=== PATIENT | male | born 1950 | race Caucasian/White ===

== ENCOUNTER 2022-07-08 07:29 | Emergency (ER) | payer MEDICARE ==
[~2022-07-08] VITALS: Ht 193 cm; Wt 83.9 kg
[2022-07-08 08:16] LABS: BASOPHILS ABSOLUTE AUTO 0.13 K/mm3 (0.00-0.23); BASOPHILS PERCENT AUTO 1 % (0-2); EOSINOPHILS PERCENT AUTO 0 % (0-6); Hematocrit 43.6 % (37.0-53.0); Hemoglobin 16.1 g/dL (13.5-17.5); IMMATURE GRAN ABSOLUTE AUTO 0.11 K/mm3 (0.00-0.10); IMMATURE GRAN PERCENT AUTO 1 % (0-1); LYMPHOCYTES ABSOLUTE AUTO 0.87 K/mm3 (0.84-5.20); LYMPHOCYTES PERCENT AUTO 6 % (21-46); MONOCYTES ABSOLUTE AUTO 0.45 K/mm3 (0.16-1.47); MONOCYTES PERCENT AUTO 3 % (4-13); Mean Corpuscular HGB 31.2 pg (26.0-34.0); Mean Corpuscular HGB Conc 36.9 g/dL (31.5-36.5); Mean Corpuscular Volume 85 fL (80-100); Mean Platelet Volume 10.1 fL (9.1-12.4); NEUTROPHILS ABSOLUTE AUTO 12.81 K/mm3 (1.96-9.15); NEUTROPHILS PERCENT AUTO 89 % (41-73); Platelet Count 256 K/mm3 (150-400); RDW Coefficient Variation 12.1 % (11.7-14.2); RDW Standard Deviation 37.3 fL (35.1-46.3); Red Blood Cell Count 5.16 M/mm3 (4.30-5.90); White Blood Cell Count 14.37 K/mm3 (4.00-11.30)
[2022-07-08 08:30] LABS: Albumin, Blood 4.2 g/dL (3.4-5.0); Albumin/Globulin Ratio 1.2 (0.8-1.8); Bilirubin, Total 2.5 mg/dL (0.1-1.0); Bun/Creatinine Ratio 9.8 (12.0-20.0); Calcium, Blood 9.5 mg/dL (8.5-10.1); Creatinine, Blood 1.02 mg/dL (0.60-1.20); Globulin, Blood 3.4 g/dL (2.2-4.0); Potassium, Blood 3.2 mmol/L (3.5-5.5); Total Protein, Blood 7.6 g/dL (6.4-8.2)
[2022-07-08] MEDS ORDERED: PROM25 PO (10:50)
== END 2022-07-08 11:10 | disposition home or self-care (01) ==
LOC: ER 07:29
PROVIDERS: Emergency Medicine
DX: R11.2 Nausea with vomiting, unspecified (principal); E11.40 Type 2 diabetes mellitus with diabetic neuropathy, unspecified
CPT/HCPCS: 36415; 80053; 83690; 85025; 93005; 93010; J2405; J2550; J7030

== ENCOUNTER 2024-12-17 10:56 | Inpatient (IN) | payer MEDICARE ==
[~2024-12-17] VITALS: Ht 193 cm; Wt 87.8 kg
[2024-12-17] VITALS (23 sets, daily range): BP systolic 115–171; BP diastolic 74–104
[~2024-12-17 10:56] MED LIST: PROM25 PO
[2024-12-17] MEDS ORDERED: NS 0 ML IV ONE (11:07)
[2024-12-17] MEDS ORDERED: Ondansetron HCl 2 MG / ML 2ML Vial ONE (11:07)
[2024-12-17] MEDS ORDERED: Ondansetron HCl 2 MG / ML 2ML Vial IV PRN ×3 (11:10→23:15)
[2024-12-17] MEDS ORDERED: Lactated Ringer's 1,000 ML IV ONE ×2 (11:13→11:20)
[2024-12-17] MEDS ORDERED: Lactated Ringer's 2,000 ML IV ONE (11:15)
[2024-12-17 11:16] LABS: BASOPHILS ABSOLUTE AUTO 0.11 K/mm3 (0.00-0.23); BASOPHILS PERCENT AUTO 0 % (0-2); EOSINOPHILS ABSOLUTE AUTO 0.01 K/mm3 (0.00-0.68); EOSINOPHILS PERCENT AUTO 0 % (0-6); Hemoglobin 19.2 g/dL (13.5-17.5); IMMATURE GRAN ABSOLUTE AUTO 0.24 K/mm3 (0.00-0.10); IMMATURE GRAN PERCENT AUTO 1 % (0-1); LYMPHOCYTES ABSOLUTE AUTO 1.16 K/mm3 (0.84-5.20); LYMPHOCYTES PERCENT AUTO 4 % (21-46); MONOCYTES ABSOLUTE AUTO 1.99 K/mm3 (0.16-1.47); MONOCYTES PERCENT AUTO 7 % (4-13); Mean Corpuscular HGB 28.8 pg (26.0-34.0); Mean Corpuscular HGB Conc 34.7 g/dL (31.5-36.5); Mean Corpuscular Volume 83 fL (80-100); Mean Platelet Volume 11.6 fL (9.1-12.4); NEUTROPHILS ABSOLUTE AUTO 26.95 K/mm3 (1.96-9.15); NEUTROPHILS PERCENT AUTO 89 % (41-73); Platelet Count 425 K/mm3 (150-400); RDW Coefficient Variation 13.5 % (11.7-14.2); RDW Standard Deviation 38.5 fL (35.1-46.3); Red Blood Cell Count 6.67 M/mm3 (4.30-5.90); White Blood Cell Count 30.46 K/mm3 (4.00-11.30)
[2024-12-17] MEDS ORDERED: Famotidine 10 MG/ML 2ML Vial IV ONE (11:20)
[2024-12-17] MEDS ORDERED: Pantoprazole Sodium 40 MG Injection IV ONE (11:20)
[2024-12-17] MEDS ORDERED: MethylPREDNISolone Sod Succ 125 MG Vial IV ONE (11:20)
[2024-12-17 11:21] LABS: Calcium, Ionized (POC) 1.13 mmol/L (1.10-1.46); Chloride (POC) 98 mmol/L (98-108); Creatinine (POC) 2.5 mg/dL (0.8-1.3); Glucose (ISTAT POC) >700 mg/dL (70-99); Hemoglobin (POC) 19.7 g/dL (13.5-17.5); Potassium (POC) 3.3 mmol/L (3.5-5.5); Sodium (POC) 141 mmol/L (135-148); Total CO2 (POC) 18 mmol/L (21-32)
[2024-12-17 11:21] LABS: Hematocrit 55.4 % (37.0-53.0)
[2024-12-17 11:22] LABS: Base Excess Venous -8.6 mmol/L; Bicarbonate Venous 17.5 mmol/L (24.0-30.0); PCO2 Venous 36.2 mmHg (38-42)
[2024-12-17] MEDS ORDERED: DiphenhydrAMINE HCl 50 MG/ML 1ML Vial IV ONE (11:30)
[2024-12-17] MEDS ORDERED: Piperacillin/Tazobactam Sod 4.5 GM in NS 100 ML IV ONE (11:30)
[2024-12-17] MEDS ORDERED: Insulin Human Regular 100 UNIT in NS 100 ML IV SCH (11:30)
[2024-12-17 11:56] LABS: Alanine Aminotransfer (ALT/SGP 27 U/L (12-78); Albumin, Blood 4.7 g/dL (3.4-5.0); Albumin/Globulin Ratio 1.1 (0.8-1.8); Alk Phos 85 U/L (50-136); Anion Gap 31 mmol/L (3-11); Aspartate Aminotrans (AST/SGOT 34 U/L (12-37); Bilirubin, Total 2.2 mg/dL (0.1-1.0); Blood Urea Nitrogen 62 mg/dL (8-24); Bun/Creatinine Ratio 26.2 (12.0-20.0); CO2, Blood 17 mmol/L (21-32); Calcium, Blood 10.8 mg/dL (8.5-10.1); Chloride, Blood 91 mmol/L (98-108); Creatinine, Blood 2.37 mg/dL (0.60-1.20); Globulin, Blood 4.1 g/dL (2.2-4.0); Glomerular Filtration Rate 28 (60-); Glucose, Blood 984 mg/dL (70-99); Potassium, Blood 3.3 mmol/L (3.5-5.5); Sodium, Blood 136 mmol/L (136-145); Total Protein, Blood 8.8 g/dL (6.4-8.2)
[2024-12-17] MEDS ORDERED: Potassium Chloride 40 MEQ in NS 250 ML IV SCH (12:05)
[2024-12-17] MEDS ORDERED: FLU VACC TS2024-25(6MOS UP)/PF 45 MCG/0.5 ML SYRINGE IM PRN (12:25)
[2024-12-17] MEDS ORDERED: Lactated Ringer's 1,000 ML IV SCH ×2 (12:25→15:15)
[2024-12-17 12:26] LABS: Beta-hydroxybutyrate 93.2 mg/dL (0.2-2.8)
[2024-12-17 12:39] LABS: International Normalized Ratio 1.07; Prothrombin Time Results 11.4 Sec (9.7-11.5)
[2024-12-17 13:22] LABS: Source, Urine Clean Catch
[2024-12-17 13:22] LABS: Glucose, Blood 1020 mg/dL (70-99)
[2024-12-17 13:29] LABS: Appearance, Urine Clear (Clear); Bilirubin, Urine Neg (Neg); Blood, Urine 2+ (Neg); Color, Urine Yellow (P-Yellow); Glucose Qualitative, Urine 4+ (Neg); Ketones, Urine 3+ (Neg); Leukocyte Esterase, Urine Neg (Neg); Nitrite, Urine Neg (Neg); Protein, Urine 2+ (Neg); Specific Gravity, Urine 1.015 (1.003-1.022); Urobilinogen, Urine NORM (Normal)
[2024-12-17 13:43] LABS: Glucose, Blood 840 mg/dL (70-99)
[2024-12-17 13:45] LABS: Bacteria Not Seen /hpf; Hyaline Casts 0-2 /lpf (0-2); Red Blood Cells, Urine 0-2 /hpf (0-2); Squamous Epithelial Cells Not Seen /hpf (Few); White Blood Cells, Urine 0-2 /hpf (0-5)
[2024-12-17 13:46] LABS: U Amphetamine Screen Not Detected; U Barbituate Screen Not Detected; U Benzodiazapine Screen Not Detected; U Buprenorphine Screen Not Detected; U Cannabinoids Screen Not Detected; U Cocaine Screen Not Detected; U Methadone Screen Not Detected; U Methamphetamine Screen Not Detected; U Opiates Screen Not Detected; U Oxycodone Screen Not Detected; U Phencyclidine Screen Not Detected
[2024-12-17 14:44] LABS: Glucose, Blood 769 mg/dL (70-99)
[2024-12-17 15:50] LABS: Adenovirus Not Detected (NOT DETECT); Bordetella pertussis Not Detected (NOT DETECT); Chlamydophila pneumoniae Not Detected (NOT DETECT); Coronavirus 229E Not Detected (NOT DETECT); Coronavirus HKU1 Not Detected (NOT DETECT); Coronavirus NL63 Not Detected (NOT DETECT); Coronavirus OC43 Not Detected (NOT DETECT); Human Metapneumovirus Not Detected (NOT DETECT); Human Rhinovirus/Enterovirus Not Detected (NOT DETECT); Influenza A/2009-H1 Not Detected (NOT DETECT); Influenza A/H1 Not Detected (NOT DETECT); Influenza A/H3 Not Detected (NOT DETECT); Influenza B Not Detected (NOT DETECT); Mycoplasma pneumoniae Not Detected (NOT DETECT); Parainfluenza Virus 1 Not Detected (NOT DETECT); Parainfluenza Virus 2 Not Detected (NOT DETECT); Parainfluenza Virus 3 Not Detected (NOT DETECT); Parainfluenza Virus 4 Not Detected (NOT DETECT); Respiratory Syncytial Virus Not Detected (NOT DETECT); SARS-Cov-2 (COVID-19), BioFire Not Detected (NOT DETECT)
[2024-12-17] MEDS ORDERED: Potassium Chloride 20 MEQ/15 ML UDC PO ONE (16:00)
--- NOTE | 2024-12-17 16:07 | NUR ---
THIS RN ASSUMED CARE OF PT AT 1500. PT IS ALERT AND ORIENTED X4, CALLS APPROPRIATELY. PT HEART RATE IN THE 100s, BLOOD PRESSURE STABLE AT 134/84, PT DENIES CHEST PAIN UPON ASSESSMENT. PT WAS PUT ON A NON-REBREATHER UPON ADMISSION TO THE ICU, WAS AT BEDSIDE AND PUT PT ON ROOM AIR, PT SATTING >92%, PT DENIES SHORTNESS OF BREATH UPON ASSESSMENT. PT BLOOD SUGAR >700, IS AWARE. INSULIN TURNED OFF PER DUE TO LOW POTASSIUM. PT ABLE TO VOID PER KAR, STILL HAVING BROWN LOOKING SPUTUM, AWARE. NEW ORDERS HAVE BEEN PLACED PER . NO OTHER INTERVENTIONS AT THIS TIME. PLAN OF CARE CONTINUED.
[2024-12-17] MEDS ORDERED: Potassium Chloride 40 MEQ in NS 250 ML IV ONE ×3 (16:50→22:50)
[2024-12-17 17:09] LABS: Bun/Creatinine Ratio 28.5 (12.0-20.0); Calcium, Blood 9.8 mg/dL (8.5-10.1); Potassium, Blood 3.5 mmol/L (3.5-5.5)
[2024-12-17 17:13] LABS: Base Excess Venous -2.5 mmol/L; Bicarbonate Venous 22.1 mmol/L (24.0-30.0); PCO2 Venous 37.5 mmHg (38-42); pH Blood Venous 7.39 (7.34-7.37)
--- NOTE | 2024-12-17 17:55 | NUR ---
PT SUMMARY REDRAW OF BMP AND VBG WAS COMPLETE AT 1630, WAS NOTIFIED GLUCOSE WAS 636, POTASSIUM 3.5, PROVIDER SAID OKAY TO RESTART INSULIN GTT, STARTED PER PROTOCOL. WANTED ANOTHER BMP AT 2130, THEN ANOTHER 40MEQ OF POTASSIUM AFTER THE CURRENT BAG IS COMPLETE, ORDERS ARE IN. PT STATES THEY ARE STARTING TO FEEL BETTER. NO OTHER INTERVENTIONS AT THIS TIME. PLAN OF CARE CONTINUED.
[2024-12-17] MEDS ORDERED: Piperacillin/Tazobactam Sod 3.375 GM in NS 100 ML IV SCH (18:00)
[2024-12-17] MEDS ORDERED: Metoprolol Tartrate 1 MG/ML 5 ML VIAL IV ONE (19:01)
[2024-12-17] MEDS ORDERED: Adenosine 3 MG/ML 2 ML Vial IV ONE (19:01)
[2024-12-17 19:11] LABS: Glucose, Blood 637 mg/dL (70-99)
[2024-12-17 22:17] LABS: Bun/Creatinine Ratio 29.4 (12.0-20.0); Calcium, Blood 10.2 mg/dL (8.5-10.1); Creatinine, Blood 2.04 mg/dL (0.60-1.20)
[2024-12-17] MEDS ORDERED: Dextrose 5% 1,000 ML IV SCH (22:35)
[2024-12-18] VITALS (78 sets, daily range): BP systolic 77–181; BP diastolic 35–153
--- NOTE | 2024-12-18 01:16 | NUR ---
UPDATE AROUND 2200 PT BEGAN TO C/O SOB, APPEARED TO HAVE AN INCREASED WOB, AND L/S WERE MORE COARSE T/O COMPARED TO START OF SHIFT. ABLE TO CLEAR OWN AIRWAY W/ MODERATE AMOUNTS OF THICK GREEN SECRETIONS. PT WAS ON ROOM AIR UNTIL THIS POINT, PLACED 2L NC ON PT AND CALL PLACED TO DR. TERRELL. ORDERS GIVEN FOR FLUID RATE ADJUSTMENT.
[2024-12-18 03:46] LABS: Hemoglobin 17.2 g/dL (13.5-17.5); Mean Corpuscular HGB 28.6 pg (26.0-34.0); Mean Corpuscular HGB Conc 35.1 g/dL (31.5-36.5); Mean Corpuscular Volume 81 fL (80-100); Mean Platelet Volume 10.3 fL (9.1-12.4); Platelet Count 292 K/mm3 (150-400); RDW Standard Deviation 38.4 fL (35.1-46.3); Red Blood Cell Count 6.02 M/mm3 (4.30-5.90)
[2024-12-18 03:56] LABS: Albumin, Blood 3.5 g/dL (3.4-5.0); Albumin/Globulin Ratio 0.9 (0.8-1.8); Bilirubin, Total 1.2 mg/dL (0.1-1.0); Bun/Creatinine Ratio 26.7 (12.0-20.0); Calcium, Blood 9.8 mg/dL (8.5-10.1); Creatinine, Blood 1.91 mg/dL (0.60-1.20); Globulin, Blood 3.8 g/dL (2.2-4.0); Potassium, Blood 3.6 mmol/L (3.5-5.5); Total Protein, Blood 7.3 g/dL (6.4-8.2)
[2024-12-18 03:58] LABS: BAND PERCENT MAN 19 % (0-8); BASOPHILS PERCENT MAN 0 % (0-2); EOSINOPHILS PERCENT MAN 0 % (0-6); LYMPHOCYTES ABSOLUTE MAN 1.72 K/mm3 (0.84-5.20); LYMPHOCYTES PERCENT MAN 8 % (21-46); MONOCYTES ABSOLUTE MAN 0.43 K/mm3 (0.16-1.47); MONOCYTES PERCENT MAN 2 % (4-13); NEUTROPHILS ABSOLUTE MAN 19.44 K/mm3 (1.96-9.15); SEG NEUTROPHILS PERCENT MAN 71 % (41-73); TOTAL CELLS COUNTED 100
--- NOTE | 2024-12-18 06:23 | NUR ---
SHIFT SUMMARY PT A/OX4, DIFFICULT TO UNDERSTAND R/T SWOLLEN BOTTOM LIP FROM FALL AT HOME. DENIES PAIN. PT HAS BEEN N/V MOST OF THIS SHIFT. PRN ZOFRAN GIVEN WITH SOME RELIEF. NPO R/T ASPIRATION RISK. INSULIN GTT AND D5W INFUSING. PT ON 3L NC, SATS > 94%, SEE OTHER NOTE FOR MORE RESP INFO. HR 80-100'S, MAPS > 65. PUREWICK IN PLACE. CALL LIGHT IN REACH.
[2024-12-18] MEDS ORDERED: Enoxaparin 40 MG/0.4 ML SYR SC SCH (09:00)
[2024-12-18] MEDS ORDERED: Promethazine HCl 25 MG Tab PO PRN (09:45)
[2024-12-18] MEDS ORDERED: Piperacillin/Tazobactam Sod 3.375 GM in NS 100 ML IV SCH (10:00)
[2024-12-18 10:36] LABS: Bun/Creatinine Ratio 24.4 (12.0-20.0); Calcium, Blood 10.2 mg/dL (8.5-10.1); Creatinine, Blood 2.01 mg/dL (0.60-1.20); Potassium, Blood 4.1 mmol/L (3.5-5.5)
[2024-12-18] MEDS ORDERED: Insulin Glargine-Yfgn 100 Unit/mL 3 ML SYR SC SCH (11:00)
[2024-12-18] MEDS ORDERED: Insulin Regular 100 UNIT/ML 10ML Vial SC SCH (12:00)
[2024-12-18] MEDS ORDERED: Diltiazem HCl 5 MG / ML 5ML Vial ONE (13:53)
[2024-12-18] MEDS ORDERED: Diltiazem HCl 5 MG / ML 5ML Vial IV ONE (13:55)
[2024-12-18] MEDS ORDERED: Heparin Sodium,Porcine/0.5 NS 500 ML IV SCH (14:30)
[2024-12-18] MEDS ORDERED: Metoprolol Tartrate 1 MG/ML 5 ML VIAL IV PRN (15:55)
[2024-12-18] MEDS ORDERED: Metoprolol Tartrate 50 MG Tab PO SCH (16:00)
[2024-12-18 16:31] LABS: Bun/Creatinine Ratio 23.8 (12.0-20.0); Calcium, Blood 9.7 mg/dL (8.5-10.1); Creatinine, Blood 2.02 mg/dL (0.60-1.20); Potassium, Blood 4.2 mmol/L (3.5-5.5)
[2024-12-18] MEDS ORDERED: FentaNYL Citrate 50 MCG/ML 2 ML Injection IV PRN (17:25)
[2024-12-18] MEDS ORDERED: dexmedeTOMIDine 100 ML IV SCH (17:25)
--- NOTE | 2024-12-18 18:39 | NUR ---
Event. At approximately 1345 pt noted to have rhythm change to SVT, supercharger repair supervisor, Dr. Mendoza and other staff called to bedside. Vagal maneuvers attempted without success, 6mg Adenosine given at 1353 with no effect, 20mg Cardizem given at 1358, 5mg lopressor given at 1403. HR slowly dropped into 130-140s. Order obtained for cardizem infusion. Infusion unsuccessful at reducing HR further, Dr. Mendoza contacted again, orders obtained for PRN and PO metoprolol. Given with good effect on HR. Pt converted to sinus rhythm after additional dose of PRN lopressor this evening.
--- NOTE | 2024-12-18 18:45 | NUR ---
Summary. See event note for HR. Otherwise pt rested in bed all shift, pt confused, restless, pulling at lines/cords and attempting to get out of bed. Pt redirected and bed alarm put in place all shift. Order for precedex obtained if pt continues to attempt to get out of bed unsafely. No other acute events, see chart for details.
[2024-12-18 21:16] LABS: Bun/Creatinine Ratio 25.8 (12.0-20.0); Calcium, Blood 9.6 mg/dL (8.5-10.1); Creatinine, Blood 1.98 mg/dL (0.60-1.20)
[2024-12-18] MEDS ORDERED: Dose Adjust by Pharmacy XX STA (22:37)
[2024-12-18] MEDS ORDERED: Heparin Sodium 5000 Units/ML 1ML MDV IV ONE (22:40)
[2024-12-19] VITALS (50 sets, daily range): BP systolic 104–175; BP diastolic 59–151
[2024-12-19] MEDS ORDERED: Dextrose 5% 1,000 ML IV SCH (02:00)
[2024-12-19 04:38] LABS: BASOPHILS ABSOLUTE AUTO 0.03 K/mm3 (0.00-0.23); BASOPHILS PERCENT AUTO 0 % (0-2); EOSINOPHILS PERCENT AUTO 0 % (0-6); Hematocrit 44.5 % (37.0-53.0); Hemoglobin 14.9 g/dL (13.5-17.5); IMMATURE GRAN ABSOLUTE AUTO 0.07 K/mm3 (0.00-0.10); IMMATURE GRAN PERCENT AUTO 1 % (0-1); LYMPHOCYTES ABSOLUTE AUTO 1.67 K/mm3 (0.84-5.20); LYMPHOCYTES PERCENT AUTO 12 % (21-46); MONOCYTES ABSOLUTE AUTO 0.97 K/mm3 (0.16-1.47); MONOCYTES PERCENT AUTO 7 % (4-13); Mean Corpuscular HGB 28.5 pg (26.0-34.0); Mean Corpuscular HGB Conc 33.5 g/dL (31.5-36.5); Mean Corpuscular Volume 85 fL (80-100); Mean Platelet Volume 11.3 fL (9.1-12.4); NEUTROPHILS ABSOLUTE AUTO 11.71 K/mm3 (1.96-9.15); NEUTROPHILS PERCENT AUTO 81 % (41-73); Platelet Count 210 K/mm3 (150-400); RDW Coefficient Variation 13.2 % (11.7-14.2); Red Blood Cell Count 5.22 M/mm3 (4.30-5.90); White Blood Cell Count 14.45 K/mm3 (4.00-11.30)
[2024-12-19 04:57] LABS: Albumin/Globulin Ratio 0.9 (0.8-1.8); Bilirubin, Total 0.9 mg/dL (0.1-1.0); Bun/Creatinine Ratio 27.3 (12.0-20.0); Calcium, Blood 9.1 mg/dL (8.5-10.1); Creatinine, Blood 2.05 mg/dL (0.60-1.20); Globulin, Blood 3.5 g/dL (2.2-4.0); Potassium, Blood 4.2 mmol/L (3.5-5.5); Total Protein, Blood 6.5 g/dL (6.4-8.2)
[2024-12-19] MEDS ORDERED: Clarify Drug Order XX ONE (05:55)
--- NOTE | 2024-12-19 06:10 | NUR ---
SHIFT SUMMARY PT A/OX2, UNABLE TO ANSWER PLACE AND DATE QUESTIONS APPROPRIATLY. HE WAS AGITATED AND ATTEMPTING TO GET OOB, ALSO PULLING ON LINES AND TUBES. SITTER WAS ASSIGNED FOR ROUGHLY AN HOUR AND PRECEDEX WAS STARTED. PT BECAME RELAXED AND WAS ABLE TO SLEEP MOST OF THE NIGHT AFTER PRECEDEX STARTED. SITTER WAS D/C'd. CARDIAC MONITORING IN [facility], PT MAINTAINED HR IN 70-80'S, BP STABLE. ON 2L NC R/T DESATTING WHILE ASLEEP. CONDOM CATH PLACED, NO UOP THIS SHIFT. BLADDER SCANNED AT 0100 WITH 350 IN BLADDER. PG DRESSING CHANGED THIS SHIFT.
[2024-12-19] MEDS ORDERED: Enoxaparin 40 MG/0.4 ML SYR SC SCH (09:00)
[2024-12-19] MEDS ORDERED: Insulin Glargine-Yfgn 100 Unit/mL 3 ML SYR SC ONE (10:00)
[2024-12-19] MEDS ORDERED: HydrALAZINE HCl 10 MG Tab PO PRN (11:40)
[2024-12-19] MEDS ORDERED: Bisacodyl 10 MG Supp PR PRN (11:45)
[2024-12-19] MEDS ORDERED: Magnesium Hydroxide Conc 10 ML UDC PT PRN (11:45)
[2024-12-19] MEDS ORDERED: Docusate Sodium Liquid 100 MG UDC PT PRN (11:45)
[2024-12-19] MEDS ORDERED: Heparin Sodium 5000 Units/ML 1ML MDV SC SCH (12:00)
[2024-12-19] MEDS ORDERED: Protein Supplement 30 ML UD PT SCH (14:00)
[2024-12-19 16:00] LABS: Calcium, Blood 9.6 mg/dL (8.5-10.1); Creatinine, Blood 1.86 mg/dL (0.60-1.20); Potassium, Blood 3.6 mmol/L (3.5-5.5)
--- NOTE | 2024-12-19 18:24 | NUR ---
Summary. Pt more alert this shift. Status changed, precedex dc'd. Up to chair much of shift, worked with PT and OT today. Pt failed speech eval, dobhoff placed this afternoon and TF started at goal rate. One short episode of SVT, otherwise VS wnl all shift. See chart for further details.
--- NOTE | 2024-12-19 19:58 | NUR ---
ASSESSMENT/ASSUMED CARE PT AWAKE, MOVING SELF IN BED. DENIES PAIN OR DISCOMFORT. BED ALARM ON. A&O X4. SPEECH SLOW BUT CLEAR AND ABLE TO MAKE NEEDS KNOWN. LUNGS COARSE AND DECREASED. ON ROOMAIR. SPO2 95%. RESP EVEN AND NONLABORED. PRODUCTIVE COUGH WITH THICK PLUMMER/YELLOW SPUTUM. HEART RATE REGULAR IN THE 70-80'S. BP STABLE. DENEIS CHEST PAIN OR PRESSURE. NO EDEMA. BT+ ABD SOFT AND NONTENDER. DENIES N/V. DOBHOFF TO LEFT NARE AT 67 CM WITH TUBE FEED VITAL HP AT GOAL RATE OF 25 ML/HR AND WATER 30 ML Q4HR. POWER GLIDE TO RIGHT UPPER ARM SALINE LOCKED. DRSG INTACT. ABLE TO DRAW BLOOD AND FLUSH WITHOUT DIFFICULTY. PIV TO RIGHT FOREARM, RIGHT HAND AND LEFT FOREARM. ALL SALINE LOCKED. ABLE TO FLUSH WITHOUT DIFFICULTY. PT WITH POOR ORAL CARE. SCAB TO LEFT LOWER LIP DRY. ASSISTED WITH ORAL CARE AND MOUTH MOISTURIZER APPLIED. WILL CONT TO MONITOR
--- NOTE | 2024-12-19 22:05 | NUR ---
JUSTO OKAY TO USE PER DR MARADIAGA
--- NOTE | 2024-12-19 23:00 | NUR ---
SPO2 DOWN TO 86% ON ROOMAIR. PLACED ON 3 LITERS O2 VIA NC AND SPO2 UP TO 96%
[2024-12-20] VITALS: BP 165/82
--- NOTE | 2024-12-20 02:59 | NUR ---
PAIN PT VERY RESTLESS, PULLING ON LINES. TRYING TO CLIMB OUT OF BED. SAYING,"YOU ARE BULL SHITTING ME. YOUR TRYING TO MAKE ME PEE WHEN I DON'T HAVE TO." TRYING TO REORIENT PT. PT STATES,"I KNOW I'M IN THE HOSPITAL. DON'T TELL ME WHAT I ALREADY KNOW". PT MED WITH FENTANYL FOR GENERAL PAIN. PT STATES,"I JUST WANT TO GET SOME SLEEP".
[2024-12-20 03:14] VITALS: BP 175/103
[2024-12-20 03:31] LABS: BASOPHILS ABSOLUTE AUTO 0.02 K/mm3 (0.00-0.23); BASOPHILS PERCENT AUTO 0 % (0-2); EOSINOPHILS PERCENT AUTO 0 % (0-6); Hematocrit 49.2 % (37.0-53.0); Hemoglobin 16.3 g/dL (13.5-17.5); IMMATURE GRAN ABSOLUTE AUTO 0.07 K/mm3 (0.00-0.10); IMMATURE GRAN PERCENT AUTO 1 % (0-1); LYMPHOCYTES ABSOLUTE AUTO 1.63 K/mm3 (0.84-5.20); LYMPHOCYTES PERCENT AUTO 11 % (21-46); MONOCYTES ABSOLUTE AUTO 0.79 K/mm3 (0.16-1.47); MONOCYTES PERCENT AUTO 5 % (4-13); Mean Corpuscular HGB 28.6 pg (26.0-34.0); Mean Corpuscular HGB Conc 33.1 g/dL (31.5-36.5); Mean Corpuscular Volume 86 fL (80-100); NEUTROPHILS ABSOLUTE AUTO 12.51 K/mm3 (1.96-9.15); NEUTROPHILS PERCENT AUTO 83 % (41-73); Platelet Count 246 K/mm3 (150-400); RDW Coefficient Variation 13.1 % (11.7-14.2); RDW Standard Deviation 40.3 fL (35.1-46.3); White Blood Cell Count 15.02 K/mm3 (4.00-11.30)
[2024-12-20 03:55] LABS: Bun/Creatinine Ratio 32.1 (12.0-20.0); Calcium, Blood 10.1 mg/dL (8.5-10.1); Creatinine, Blood 1.62 mg/dL (0.60-1.20); Magnesium, Blood 2.6 mg/dL (1.6-2.4); Phosphorus, Blood 1.7 mg/dL (2.5-4.9); Potassium, Blood 3.8 mmol/L (3.5-5.5)
[2024-12-20 04:00] VITALS: BP 167/86
--- NOTE | 2024-12-20 04:14 | NUR ---
CALL TO MD CALL TO DR MARADIAGA REGARDING AM LABS. SEE NEW ORDERS
[2024-12-20] MEDS ORDERED: Insulin Regular 100 UNIT/ML 10ML Vial SC SCH (04:15)
--- NOTE | 2024-12-20 04:54 | NUR ---
SHIFT SUMMARY PT RESTING QUIETLY AT THIS TIME. STARTED ON 3 LITERS O2 VIA NC WHILE SLEEPING DUE TO SPO2 DOWN TO 86%. SPO2 UP TO MID 90'S WITH O2. PRODUCTIVE COUGH WITH PLUMMER/YELLOW THICK SPUTUM. PT HAD SOME CONFUSION DURING THE NIGHT, BUT NOW IS A&O. COOP WITH CARE. DOBHOFF REPLACED DURING THE NIGHT DUE TO PT PULLING IT OUT. PT MED WITH HYDRALAZINE VIA DOBHOFF DUE TO HTN. POST VOID BLADDER SCAN DONE. THAN PT STRAIGHT CATH FOR TOTAL 700 ML. ATTENDS C&I. AM LABS CALLED TO DR MARADIAGA. AWAITING K PHOS. CONT TO MONITOR
[2024-12-20] MEDS ORDERED: Potassium Phosphate Dibasic 30 MM in Dextrose 5% 500 ML IV ONE (05:30)
[2024-12-20] MEDS ORDERED: Thiamine HCl 100 MG Tab PT SCH (09:00)
[2024-12-20] MEDS ORDERED: Insulin Glargine-Yfgn 100 Unit/mL 3 ML SYR SC SCH ×2 (09:00)
[2024-12-20] MEDS ORDERED: Multivitamins-Minerals Liquid 15 ML Oral Syringe PT SCH (09:00)
[2024-12-20 11:43] VITALS: BP 125/80
--- NOTE | 2024-12-20 13:09 | NUR ---
Tube feeding adjusted and increased to 40 cc/hour, water flushes are at 250 cc every 6 hours per am orders. Pt was helped back to bed at his request. he had been up in chair after working with KYRA Gordon this morning.
[2024-12-20 16:13] VITALS: BP 175/88
--- NOTE | 2024-12-20 17:30 | NUR ---
1700 Pt pulled out 2 IVs as well as his Dobhoff. He says he pulled them out because he "doesn't need them". Conversation with patient asking if he is wanting to go on hospice/comfort care and discontinue treatment vs. continuing treatment and he clearly said that he does not want hospice, but that he wants to get better so that he can go home. Explained to patient the reason for the IVs, feeding tube and that without those at this time he would not get better, but would definitely get worse. He said that he wants to continue treatment and agreed to have the Dobhoff tube replaced and IV medications and insulin injections, etc.
--- NOTE | 2024-12-20 18:42 | NUR ---
No read yet of xray ordered for Dobhoff placement. Imaging department confirms that the pt did have the xray done and it is being read at this time.
[2024-12-20] MEDS ORDERED: Lactobacil 2-S.Thermo-Bifido 1 1 Cap PT SCH (21:00)
[2024-12-20] MEDS ORDERED: Protein Supplement 30 ML UD PT SCH (21:00)
[2024-12-20] MEDS ORDERED: Acetaminophen 325 MG TABLET PO PRN (21:15)
--- NOTE | 2024-12-20 21:41 | NUR ---
NURSING NOTE: THIS PT PULLED OUT DOBHOFF LINE AT ABOUT 2130. THIS RN ASKED PT WHY HE PULLED LINE AND HE RESPONDED, "YOU ARE TRYING TO KILL ME". PT EDUCATED ON WHY DOBHOFF WAS IN PLACE AND HE RESPONDED, "YOU AREN'T FEEDING ME ANYTHING". PT EDUCATED ON WHAT TUBE FEED WAS RUNNING AND WHY HE CANNOT HAVE ANYTHING PO AT THIS TIME. AFTER EDUCATIOM, THIS RN ASKED IF I COULD PLACE ANOTHER DOBHOFF AND TO WHICH THE PT REFUSED.
[2024-12-21 03:39] LABS: BASOPHILS ABSOLUTE AUTO 0.03 K/mm3 (0.00-0.23); BASOPHILS PERCENT AUTO 0 % (0-2); EOSINOPHILS ABSOLUTE AUTO 0.01 K/mm3 (0.00-0.68); EOSINOPHILS PERCENT AUTO 0 % (0-6); Hemoglobin 16.2 g/dL (13.5-17.5); IMMATURE GRAN ABSOLUTE AUTO 0.05 K/mm3 (0.00-0.10); IMMATURE GRAN PERCENT AUTO 0 % (0-1); LYMPHOCYTES ABSOLUTE AUTO 1.71 K/mm3 (0.84-5.20); LYMPHOCYTES PERCENT AUTO 14 % (21-46); MONOCYTES ABSOLUTE AUTO 0.72 K/mm3 (0.16-1.47); MONOCYTES PERCENT AUTO 6 % (4-13); Mean Corpuscular HGB 28.5 pg (26.0-34.0); Mean Corpuscular HGB Conc 33.1 g/dL (31.5-36.5); Mean Corpuscular Volume 86 fL (80-100); Mean Platelet Volume 10.5 fL (9.1-12.4); NEUTROPHILS ABSOLUTE AUTO 9.64 K/mm3 (1.96-9.15); NEUTROPHILS PERCENT AUTO 79 % (41-73); Platelet Count 212 K/mm3 (150-400); RDW Coefficient Variation 13.1 % (11.7-14.2); RDW Standard Deviation 40.6 fL (35.1-46.3); Red Blood Cell Count 5.69 M/mm3 (4.30-5.90); White Blood Cell Count 12.16 K/mm3 (4.00-11.30)
[2024-12-21 03:56] LABS: Bun/Creatinine Ratio 29.7 (12.0-20.0); Calcium, Blood 9.4 mg/dL (8.5-10.1); Creatinine, Blood 1.48 mg/dL (0.60-1.20); Magnesium, Blood 2.6 mg/dL (1.6-2.4); Phosphorus, Blood 2.8 mg/dL (2.5-4.9); Potassium, Blood 3.3 mmol/L (3.5-5.5)
[2024-12-21 04:14] VITALS: BP 127/72
--- NOTE | 2024-12-21 06:10 | NUR ---
SHIFT SUMMARY: THIS PT OVERALL HAD A GOOD NIGHT AND WAS ABLE TO GET SOME REST OVERNIGHT. STATED IN A PREVIOUS NOTE, THE PT PULLED OUT HIS DOBHOFF EARLY IN THE SHIFT AND REFUSED FOR ME TO PUT ANOTHER ONE IN. HE WAS VERY DISTRUSTFUL TOWARDS THIS RN AND OTHER NURSING STAFF, THINKING THAT WE WERE TRYING TO HURT HIM. HE WOULD QUESTION ANYTHING I WAS DOING AND WOULD SAY "WHAT DOES IT MATTER ANYWAYS". AFTER THIS EVENT, HE WAS PLEASANT FOR THE REST OF THE NIGHT AND IS CURRENTLY RESTING IN HIS ROOM AWAITING TRANSFER OUT OF THE ICU.
[2024-12-21] MEDS ORDERED: Dextrose 5% 1,000 ML IV SCH (07:35)
[2024-12-21] MEDS ORDERED: Potassium Chloride 40 MEQ in NS 250 ML IV ONE (07:50)
[2024-12-21 08:00] VITALS: BP 155/96
[2024-12-21] MEDS ORDERED: Insulin Glargine-Yfgn 100 Unit/mL 3 ML SYR SC SCH (09:00)
--- NOTE | 2024-12-21 10:14 | NUR ---
THIS RN ASSUMED CARE OF PT AT 0700. PT IS ALERT AND ORIENTED X3, CONFUSED ABOUT EXACT DATE BUT VERY REDIRECTABLE. PT HEART RATE IN THE 80s, BLOOD PRESSURE STABLE AT 155/96, PT DENIES CHEST PAIN UPON ASSESSMENT. PT ON ROOM AIR SOUNDS CRACKLE/COURSE/CLEAR, GETTING IV ANTIBIOTICS, SATTING >95%, PT DENIES SHORTNESS OF BREATH. PT HAD A DOBHOFF IN BUT PT PULLED IT OUT AND STATED THEY DO NOT WANT US TO REPLACE IT. NOTIFIED AND NEW ORDERS PLACED, PALLIATIVE IS ON THE CASE. NO OTHER INTERVENTIONS AT THIS TIME. PLAN OF CARE CONTINUED.
[2024-12-21 16:00] VITALS: BP 135/103
[2024-12-21] MEDS ORDERED: DEXTROSE 5% IV SCH (16:00)
[2024-12-21] MEDS ORDERED: TAZOBACTAM SOD IV SCH (16:00)
[2024-12-21] MEDS ORDERED: PIPERACILLIN IV SCH (16:00)
--- NOTE | 2024-12-21 17:18 | NUR ---
PT SUMMARY PT IS ALERT AND ORIENTED X4, FOLLOWS COMMANDS. NO ACUTE CHANGED THROUGHOUT THE DAY, PT IS NOW MEDICAL STATUS WITH TELE PER . IS AWARE THAT PT DOES NOT WANT A DOBHOFF, PROVIDER IS TALKING TO PT ABOUT POSSIBLE G/J TUBE PLACEMENT IF PT CONSENTS, OTHERWISE ON MONDAY SAID MIGHT HAVE TO START IV NUTRITION PER DIETARY. NO OTHER INTERVENTIONS AT THIS TIME. PLAN OF CARE CONTINUED.
[2024-12-21 20:00] VITALS: BP 152/94
[2024-12-22] VITALS: BP 123/84
[2024-12-22 03:13] LABS: BASOPHILS ABSOLUTE AUTO 0.04 K/mm3 (0.00-0.23); BASOPHILS PERCENT AUTO 0 % (0-2); EOSINOPHILS ABSOLUTE AUTO 0.09 K/mm3 (0.00-0.68); EOSINOPHILS PERCENT AUTO 1 % (0-6); Hematocrit 48.6 % (37.0-53.0); Hemoglobin 15.8 g/dL (13.5-17.5); IMMATURE GRAN ABSOLUTE AUTO 0.09 K/mm3 (0.00-0.10); IMMATURE GRAN PERCENT AUTO 1 % (0-1); LYMPHOCYTES ABSOLUTE AUTO 1.96 K/mm3 (0.84-5.20); LYMPHOCYTES PERCENT AUTO 19 % (21-46); MONOCYTES ABSOLUTE AUTO 0.88 K/mm3 (0.16-1.47); MONOCYTES PERCENT AUTO 9 % (4-13); Mean Corpuscular HGB 28.2 pg (26.0-34.0); Mean Corpuscular HGB Conc 32.5 g/dL (31.5-36.5); Mean Corpuscular Volume 87 fL (80-100); Mean Platelet Volume 10.6 fL (9.1-12.4); NEUTROPHILS PERCENT AUTO 70 % (41-73); Platelet Count 212 K/mm3 (150-400); RDW Coefficient Variation 12.9 % (11.7-14.2); RDW Standard Deviation 40.9 fL (35.1-46.3); White Blood Cell Count 10.16 K/mm3 (4.00-11.30)
[2024-12-22 03:29] LABS: Magnesium, Blood 2.5 mg/dL (1.6-2.4)
[2024-12-22 03:30] LABS: Phosphorus, Blood 2.1 mg/dL (2.5-4.9)
[2024-12-22 04:00] VITALS: BP 110/92
[2024-12-22 07:49] VITALS: BP 136/95
[2024-12-22 08:06] LABS: Bun/Creatinine Ratio 23.2 (12.0-20.0); Creatinine, Blood 1.51 mg/dL (0.60-1.20)
[2024-12-22] MEDS ORDERED: Potassium Chloride 40 MEQ in NS 250 ML IV ONE (09:00)
--- NOTE | 2024-12-22 10:04 | NUR ---
THIS RN ASSUMED CARE OF PT AT 0700. PT IS ALERT AND ORIENTED X4, FOLLOWS COMMANDS AND CALLS OUT APPROPRIATELY. PT HEART RATE IN THE 70s, BLOOD PRESSURE STABLE AT 143/86 MAP OF 104, PT DENIES ANY CHEST PAIN UPON ASSESSMENT. PT IS ON ROOM AIR SATTING >95% AND PT DENIES SHORTNESS OF BREATH UPON ASSESSMENT. PT PT POTASSIUM WAS LOW THIS AM, AND SODIUM IS STILL TRENDING UP AT 157, HAS BEEN NOTIFIED AND NEW ORDERS PLACED. BARIUM SWALLOW STUDY IS THE PLAN FOR MONDAY SPEECH THERAPY IS NOT HERE ON SUNDAYS. WILL GET A REPEAT SODIUM LEVEL AT 1500 TODAY TO CHECK IF INTERVENTIONS ARE WORKING. NO OTHER INTERVENTIONS AT THIS TIME. PLAN OF CARE CONTINUED.
[2024-12-22 15:50] LABS: Potassium, Blood 3.3 mmol/L (3.5-5.5)
[2024-12-22 16:17] VITALS: BP 136/85
[2024-12-22] MEDS ORDERED: Potassium Phosphate Dibasic 30 MM in Dextrose 5% 500 ML IV STA (16:54)
--- NOTE | 2024-12-22 17:54 | NUR ---
PT SUMMARY NO NEW ACUTE CHANGES THROUGHOUT THE DAY, BARIUM SWALLOW STUDY ON MONDAY WITH POSSIBLE IV NUTRITION PER . PT RELAXING IN BED, ABLE TO STAND AND USE URINAL WITH A X1 ASSIST. SODIUM IS TRENDING DOWN, AND POTASSIUM STILL LOW, PUT IN NEW ORDERS. NO OTHER INTERVENTIONS AT THIS TIME. PLAN OF CARE CONTINUED.
[2024-12-22 20:00] VITALS: BP 156/92
[2024-12-23] VITALS (7 sets, daily range): BP systolic 123–139; BP diastolic 71–97
[2024-12-23 03:51] LABS: Bun/Creatinine Ratio 17.1 (12.0-20.0); Creatinine, Blood 1.4 mg/dL (0.60-1.20); Potassium, Blood 3.1 mmol/L (3.5-5.5)
--- NOTE | 2024-12-23 07:28 | NUR ---
THIS RN ASSUMED CARE OF PT AT 0700. PT IS ALERT AND ORIENTED X4, FOLLOWS COMMANDS BUT HAS TROUBLE CALLING OUT FOR HELP APPROPRIATELY. PT HEART RATE IN THE 80s, BLOOD PRESSURE STABLE AT 123/97, PT DENIES ANY CHEST PAIN UPON ASSESSMENT. PT IS ON ROOM AIR SOUNDS COURSE/CLEAR, SATTING >95%, PT DENIES ANY SHORTNESS OF BREATH. THIS RN GOT REPORT THAT PT HAD A FALL LAST NIGHT, THE FALL PRECAUTIONS HAVE BEEN PUT INTO PLACE, NON-SLIP SOCKS ARE ON AND BED ALARMS HAVE BEEN SET. PALLIATIVE SHOULD BE BY TODAY TO TALK ABOUT GOALS OF CARE AND POSSIBLY STARTING IV NUTRITION. NO OTHER INTERVENTIONS AT THIS TIME. PLAN OF CARE CONTINUED.
[2024-12-23] MEDS ORDERED: Dextrose 5% 1,000 ML IV SCH ×2 (07:35→14:15)
[2024-12-23] MEDS ORDERED: Potassium Chl 20MEQ/Water100ML 100 ML IV SCH (08:00)
[2024-12-23 12:13] LABS: C DIFFICILE DNA NEGATIVE (Negative)
--- NOTE | 2024-12-23 14:14 | NUR ---
PT IS BEING TRANSFERED TO [facility], PT BROTHER WILBUR HAS BEEN NOTIFIED, NO OTHER INTERVENTIONS AT THIS TIME. PLAN OF CARE CONTINUED, REPORT HAS BEEN CALLED.
--- NOTE | 2024-12-23 14:20 | NUR ---
PATIENT TRANSFERED FROM ICU 1 TO ROOM 364, REPORT RECEIVED FROM LEONOR GARDUNO. PATIENT ORIENTED TO ROOM AND USE OF CALL LIGHT. ABLE TO TRANSFER WITH 1 ASSIST TO BED. RECAL TUBE IN PLACE, C-DIFF NEGATIVE TODAY. CONDOM CATH IN PLACE DRAINING ALFREDA CLEAR URINE. LOWER LIP SWOLLEN, RED AND SCABBED OVER FROM FALL AT HOME PRIOR TO ADMIT. PATIENT IS A/O X4, PLEASANT AND COOPERATIVE WITH CARE. FALL PRECAUTIONS IN PLACE, BED ALARM SET.
--- NOTE | 2024-12-23 15:15 | NUR ---
SPOKE WITH PT'S BROTHER WILBUR TODAY AFTER SEEING THE PATIENT. WILBUR IS WILLING TO TAKE THE PATIENT INTO AN ADJOINING [facility] VS THE TRAILER THE PT WAS LIVING IN. THE PATIENT HAS STATED HE IS BE INTERESTED IN SPEECH, PHYSICAL AND OCCUPATIONAL THERAPIES AT [facility] PRIOR TO RETURNING HOME WITH BROTHER. HE WAS PLACED ON A PUREE DIET TODAY AND SO FAR SEEMS TO BE TOLERATING IT WITHOUT DIFFICULTY.
--- NOTE | 2024-12-24 03:23 | NUR ---
SHIFT SUMMARY PT IS A/O X3, PLEASANT AND ABLE TO MAKE HIS NEEDS KNOWN. PT USING CALL LIGHT APPROPRIATELY. HOB>45 DEGREES. PT REQUESTED WATER TO DRINK, THICKENED H2O GIVEN, WHICH PT ABLE TO TOLERATE W/O DIFFICULTY. Q6HR BG @MIDNIGHT 220. RECTAL TUBE REMOVED DURING THIS SHIFT, PER PT REQUEST AND D/T FORMED STOOL CLOGGING RECTAL TUBING. SCREEN PRINTING INSPECTOR NOTIFIED. D5 INFUSING @50MLS/HR ORDERED. IV ABX ADMINISTERED ORDERED. PT DENIES PAIN. LUNG SOUNDS COARSE, AND DIM @BASES. RA. SAT'S >96% PT HAS PRODUCTIVE COUGH, MODERATE AMOUNT SPUTUM, WHITISH IN COLOR. MOUTH SWABS OFFERED, PT DENIED A NEED FOR ORAL CARE. TELE:NSR @61, PT DENIES PAIN/PRESSURE. BED AT THE LOWEST POSITION, CALL LIGHT W/I REACH. BED ALARM FOR SAFETY. PT AWAKE MOST OF THIS SHIFT.
[2024-12-24 04:50] VITALS: BP 123/65
[2024-12-24 05:03] LABS: BASOPHILS ABSOLUTE AUTO 0.08 K/mm3 (0.00-0.23); BASOPHILS PERCENT AUTO 1 % (0-2); EOSINOPHILS ABSOLUTE AUTO 0.39 K/mm3 (0.00-0.68); EOSINOPHILS PERCENT AUTO 3 % (0-6); Hematocrit 41.1 % (37.0-53.0); Hemoglobin 13.4 g/dL (13.5-17.5); IMMATURE GRAN ABSOLUTE AUTO 0.55 K/mm3 (0.00-0.10); IMMATURE GRAN PERCENT AUTO 5 % (0-1); LYMPHOCYTES ABSOLUTE AUTO 2.88 K/mm3 (0.84-5.20); LYMPHOCYTES PERCENT AUTO 24 % (21-46); MONOCYTES ABSOLUTE AUTO 0.98 K/mm3 (0.16-1.47); MONOCYTES PERCENT AUTO 8 % (4-13); Mean Corpuscular HGB 28.5 pg (26.0-34.0); Mean Corpuscular HGB Conc 32.6 g/dL (31.5-36.5); Mean Corpuscular Volume 87 fL (80-100); Mean Platelet Volume 10.8 fL (9.1-12.4); NEUTROPHILS ABSOLUTE AUTO 7.26 K/mm3 (1.96-9.15); NEUTROPHILS PERCENT AUTO 60 % (41-73); Platelet Count 197 K/mm3 (150-400); RDW Coefficient Variation 12.7 % (11.7-14.2); RDW Standard Deviation 40.4 fL (35.1-46.3); Red Blood Cell Count 4.71 M/mm3 (4.30-5.90); White Blood Cell Count 12.14 K/mm3 (4.00-11.30)
[2024-12-24 05:28] LABS: Bun/Creatinine Ratio 11.4 (12.0-20.0); Calcium, Blood 7.6 mg/dL (8.5-10.1); Creatinine, Blood 1.66 mg/dL (0.60-1.20); Phosphorus, Blood 2.5 mg/dL (2.5-4.9)
[2024-12-24 07:29] VITALS: BP 121/63
[2024-12-24] MEDS ORDERED: TAZOBACTAM SOD IV SCH (07:30)
[2024-12-24] MEDS ORDERED: DEXTROSE 5% IV SCH (07:30)
[2024-12-24] MEDS ORDERED: PIPERACILLIN IV SCH (07:30)
[2024-12-24 11:50] VITALS: BP 117/67
[2024-12-24] MEDS ORDERED: Potassium Chloride 10 Meq Tablet SA PO ONE (13:30)
[2024-12-24] MEDS ORDERED: Potassium Chloride 20 MEQ/15 ML UDC PO ONE (13:50)
[2024-12-24 15:52] VITALS: BP 134/71
[2024-12-24] MEDS ORDERED: Insulin Human Lispro 100 Units/ML 3ML Syringe SC SCH ×2 (18:00→21:00)
--- NOTE | 2024-12-24 18:43 | NUR ---
PATIENT A/OX3-4, UP TO CHAIR WITH FWW, GB AND SBA. PATIENT TOLERATING PUREE DIET, ENCOURAGING SUPPLEMENTS. PODIATRY CONSULT ORDERED TODAY FOR R NECROTIC TOE, DR DE LOS SANTOS AT BEDSIDE AND DRESSED. VSS, ON RA. COUGHING UP MODERATE AMOUNT OF YELLOW SPUTUM. CONDOM CATH IN PLACE. BLOOD SUGARS HIGH TODAY, PATIENT CHANGED TO HUMALOG HIGH CORRECTION SCALE. WORKED WITH PT/OT/ST TODAY. COOPERATIVE WITH CARE AND ABLE TO MAKE NEEDS KNOWN.
[2024-12-24 20:11] VITALS: BP 131/58
[2024-12-24] MEDS ORDERED: Insulin Glargine-Yfgn 100 Unit/mL 3 ML SYR SC ONE (21:00)
[2024-12-24] MEDS ORDERED: Insulin Glargine-Yfgn 100 Unit/mL 3 ML SYR SC SCH (21:00)
[2024-12-24 23:56] VITALS: BP 145/64
[2024-12-25 03:11] VITALS: BP 121/63
[2024-12-25 05:10] LABS: Hematocrit 38.9 % (37.0-53.0); Hemoglobin 13.1 g/dL (13.5-17.5); Mean Corpuscular HGB 28.5 pg (26.0-34.0); Mean Corpuscular HGB Conc 33.7 g/dL (31.5-36.5); Mean Corpuscular Volume 85 fL (80-100); Mean Platelet Volume 11.2 fL (9.1-12.4); Platelet Count 190 K/mm3 (150-400); RDW Coefficient Variation 12.7 % (11.7-14.2); RDW Standard Deviation 38.4 fL (35.1-46.3); Red Blood Cell Count 4.59 M/mm3 (4.30-5.90); White Blood Cell Count 15.79 K/mm3 (4.00-11.30)
[2024-12-25 05:42] LABS: Bun/Creatinine Ratio 10.7 (12.0-20.0); Calcium, Blood 7.9 mg/dL (8.5-10.1); Creatinine, Blood 1.49 mg/dL (0.60-1.20); Potassium, Blood 2.9 mmol/L (3.5-5.5)
[2024-12-25] MEDS ORDERED: Potassium Chloride 60 MEQ IV ONE (05:50)
--- NOTE | 2024-12-25 05:52 | NUR ---
SHIFT SUMMARY NOC PT A/O X 4. PLEASANT AND COOPERATIVE WITH CARE. VSS. HS CBG 228 AND SCHEDULED 30 UNITS GLARGINE GIVEN. MIDNIGHT CBG 189. IV ABX GIVEN FOR ASPIRATION PNA. D5W INFUSING @ 50 ML/HR. ON TELE SINUS RHYTHM IN 60'S-70'S. POTASSIUM 2.9 THIS AM AND HOSPITALIST ORDERED IV 60 MEQ X [address]CON[address] CATHETER [address] PLACE FOR INCONTINENCE/URGENCY. R FOOT DRESSING IN PLACE FOR NECROTIC TOES. PODIATRY SAW PT YESTERDAY AND RECOMMENDS IR CONSULT, WHICH HAS NOT BEEN ORDRERED OF NOW. PT CURRENTLY RESTING WITH BED IN LOWEST POSITION, AND CALL LIGHT WITHIN REACH.
[2024-12-25] MEDS ORDERED: NS 250 ML IV PRN (06:10)
[2024-12-25] MEDS ORDERED: Potassium Chl 20MEQ/Water100ML 100 ML IV SCH (06:15)
[2024-12-25 07:49] VITALS: BP 122/64
[2024-12-25] MEDS ORDERED: Multivitamins 1 Tab PO SCH (09:00)
[2024-12-25] MEDS ORDERED: Thiamine HCl 100 MG Tab PO SCH (09:00)
[2024-12-25 11:44] VITALS: BP 119/67
[2024-12-25 15:02] VITALS: BP 115/66
[2024-12-25 15:46] LABS: Bun/Creatinine Ratio 11.8 (12.0-20.0); Calcium, Blood 7.6 mg/dL (8.5-10.1); Creatinine, Blood 1.36 mg/dL (0.60-1.20); Potassium, Blood 3.2 mmol/L (3.5-5.5)
--- NOTE | 2024-12-25 15:50 | NUR ---
Pt failed ST Barium Swallow study today. Pt continues wavering between PEG tube placement and no PEG and home with hospice. He has stated he's tired of being in the hospital, asking, "Which one will get me out of here faster?" We discussed the various aspects, and he ultimately decided he wants the PEG tube. However, he then told ST he wants to eat and drink as he desires. Relayed this to hospitalist and discussed with his brother Josh, pt's primary caregiver. We are meeting with pt tomorrow morning at 10am.
--- NOTE | 2024-12-25 17:24 | NUR ---
SHIFT SUMMARY PATIENT A/OX3-4 THIS SHFIT, ABLE TO MAKE NEEDS KNOWN. SLOW SPEECH, PLEASANT AND COOPERATIVE WITH CARE. INCONTINENT OF BOWEL, CONDOM CATH IN PLACE. 1 PERSON ASSIST. STRICT NPO POT BARIUM SWALLOW STUDY PER SPEECH THERAPY. INSULIN AND CBG CHECKS CHANGED TO Q6 AND PRN. D5 INFUSING PER DEC. SURGICAL CONSULT FOR PEG PLACEMENT, DR. BELTRAN STATES WILL SEE PATIENT TOMORROW. PATIENT REFUSING NG TUBE, DR. ROBERSON AWARE. IR CONSULTED FOR GANGRENOUS 4TH AND 5TH TOES ON THE RIGHT FOOT. CT WITH RUNOFF OBATAINED THIS SHIFT. DR. HADLEY STATES NO EMERGENT NEEDS AT THIS TIME. TELEMETRY IN PLACE, NO EVENTS NOTED. PLAN TO DISCHARGE HOME TO PATIENT'S BROTHER'S HOME AT TIME OF DISCHARGE. POTASSIUM REPLACED PER DEC. NO OTHER CONCERNS AT THIS TIME.
[2024-12-25] MEDS ORDERED: Insulin Regular 100 UNIT/ML 10ML Vial SC SCH (18:00)
[2024-12-25 20:39] VITALS: BP 140/68
[2024-12-25] MEDS ORDERED: Arginine/Glutamine/Calcium Hmb 1 Packet PO SCH (21:00)
--- NOTE | 2024-12-26 04:56 | NUR ---
AAOX3. UP X 1 ASSIST WITH WALKER. TELE IN PLACE SR @ 62. CONDOM CATH IN PLACE. PEDIATRIST CONSULT FOR R 4TH DIGIT BLISTER AND 5TH DIGIT NECROTIC TISSUE. DRESSING IS CDI. STRICT NPO, FAILED BARRIUM SWALLOW. D5 INFUSING @ 50ML/HR IN RAC POWERGLIDE. PLAN IS DC WITH BROTHER OR OT RECOMENDS SNF. SLEPT WELL THROUGHOUT THE NIGHT WITHOUT ANY ACUTE NEEDS.
[2024-12-26 05:40] VITALS: BP 127/64
[2024-12-26 07:52] VITALS: BP 123/63
--- NOTE | 2024-12-26 09:00 | NUR ---
pt laying in bed, anxious to go home, a/ox4, pleasant and cooperative with care, follows commands well, denies pain, lungs are course t/o, resp even and unlabored, productive cough of white sputum, on r/a, hrr, tele i place running sr per monitor, see strip piv and power glide to patrick and rfa, sites are clear and patent, btx4, abd flat soft nontender, voids via carballo cath draining yellow urine, skin has scattered bruising, otherwise has dressing to right foot, no drainage noted, nessa cardona, call light in reach.
[2024-12-26 10:01] LABS: Albumin, Blood 2.2 g/dL (3.4-5.0); Anion Gap 9 mmol/L (3-11); Blood Urea Nitrogen 12 mg/dL (8-24); Bun/Creatinine Ratio 7.9 (12.0-20.0); CO2, Blood 26 mmol/L (21-32); Calcium, Blood 7.9 mg/dL (8.5-10.1); Chloride, Blood 111 mmol/L (98-108); Creatinine, Blood 1.51 mg/dL (0.60-1.20); Glomerular Filtration Rate 48 (60-); Glucose, Blood 138 mg/dL (70-99); Magnesium, Blood 2.1 mg/dL (1.6-2.4); Phosphorus, Blood 2.1 mg/dL (2.5-4.9); Potassium, Blood 2.9 mmol/L (3.5-5.5); Sodium, Blood 143 mmol/L (136-145)
--- NOTE | 2024-12-26 10:20 | NUR ---
PATIENT CALLS RN TO ROOM. HE HAS ASKED HIS BROTHER TO BRING HIM IN SOME STREET CLOTHES AND WANTS TO BE DISCHARGED WHEN HE COMES BACK. TORITO GALVEZ FROM PALLIATIVE CARE STOPS IN ROOM AND SPEAKS TO PATIENT ABOUT HOSPICE. SHE WILL CALL AND ARRANGE FOR A HOSPICE DC. CONTROL SYSTEMS ENG TRISH GALVEZ IS NOTIFIED OF CHANGE IN STATUS.
--- NOTE | 2024-12-26 11:20 | NUR ---
PALLIATIVE CARE NOTE: PT INFORMS THIS RN HE DOES NOT WANT A PEG TUBE AFTER ALL. HE WANTS TO GO HOME WITH HOSPICE SERVICES IN PLACE. PT EDUCATED ON GOALS OF HOSPICE CARE AND HE AGREES HE DOES NOT WANT TO COME BACK TO THE HOSPITAL. HE STATES "I JUST WANT TO SPEND THE REST OF TIME I HAVE WITH MY FAMILY". PT DENIES NEED FOR ANY EQUIPMENT IN THE HOUSE. HE DOES NOT HAVE PREFERENCE ON AGENCY. DUE TO MEDICAL FRAGILITY SAME DAY ADMIT IS [facility]. [facility] BUT [facility] DOES. PT AGREEABLE TO [facility] HOSPICE. DR. PLUMMER NOTIFIED AND IS AGREEABLE TO MD ON HOSPICE TODAY. UPDATED PRIMARY RN AND HENRRY SIMPSON.
--- NOTE | 2024-12-26 12:45 | NUR ---
pt has been discharged to home on hospice, brother here to take him home, ivx2 removed intact, went over instructions with brother, he verbalized understanding, no new medications, carballo cath will remain, pt left via wheelchair with all belongings.
== END 2024-12-26 12:59 | disposition hospice, home (50) | DRG 871 ==
LOC: ER 10:56 → MEDS 12:23 → ERHOLD 12:23 → ICUE 12:23 → MEDS 12-23 14:08
PROVIDERS: Emergency Medicine; Family Medicine; Internal Medicine; Internal Medicine Critical Care Medicine; ADMIT Internal Medicine
PROC: 3E03329 Introduction of Other Anti-infective into Peripheral Vein, Percutaneous Approach (ICD-10-PCS; principal; 2024-12-17)
PROC: 0DH67UZ Insertion of Feeding Device into Stomach, Via Natural or Artificial Opening (ICD-10-PCS; 2024-12-21)
DX: A41.9 Sepsis, unspecified organism (principal); E11.10 Type 2 diabetes mellitus with ketoacidosis without coma; J18.9 Pneumonia, unspecified organism; G93.41 Metabolic encephalopathy; J96.01 Acute respiratory failure with hypoxia; J69.0 Pneumonitis due to inhalation of food and vomit; I21.A1 Myocardial infarction type 2; R64 Cachexia; N17.9 Acute kidney failure, unspecified; E87.0 Hyperosmolality and hypernatremia; I47.10 Supraventricular tachycardia, unspecified; E44.0 Moderate protein-calorie malnutrition; E87.1 Hypo-osmolality and hyponatremia; K92.2 Gastrointestinal hemorrhage, unspecified; Z68.22 Body mass index [BMI] 22.0-22.9, adult; Z60.2 Problems related to living alone; E11.42 Type 2 diabetes mellitus with diabetic polyneuropathy; E11.621 Type 2 diabetes mellitus with foot ulcer; L97.514 Non-pressure chronic ulcer of other part of right foot with necrosis of bone; D75.1 Secondary polycythemia; R79.89 Other specified abnormal findings of blood chemistry; E86.0 Dehydration; N18.30 Chronic kidney disease, stage 3 unspecified; R45.1 Restlessness and agitation; F41.9 Anxiety disorder, unspecified; E87.6 Hypokalemia; R13.13 Dysphagia, pharyngeal phase; R33.9 Retention of urine, unspecified; S09.93XA Unspecified injury of face, initial encounter; W19.XXXA Unspecified fall, initial encounter
CPT/HCPCS: 0202U; 36415; 51701; 71045; 72040; 73620; 74176; 74230; 75635; 80047; 80048; 80053; 80069; 81001; 82010; 82272; 82803; 82947; 83036; 83605; 83690; 83735; 84100; 84132; 84295; 84443; 84484; 85014; 85025; 85027; 85610; 85651; 85730; 86140; 86850; 86900; 86901; 87040; 87070; 87205; 87493; 92526; 92610; 92611; 93005; 93010; 94760; 94762; 96365; 96375; 97110; 97116; 97162; 97165; 97530; 97535; 99285-25; A6590; A9270; C1751; J0153; J1200; J1644; J1650; J1815; J2405; J2470; J2543; J2919; J3010; J3480; J7030; J7050; J7060; J7070; J7120; Q9967